=== PATIENT | male | born 1965 | race Caucasian/White ===

== ENCOUNTER 2016-10-12 18:06 | Emergency (ER) | payer MEDICAID, OTHER ==
[~2016-10-12] VITALS: Ht 167.6 cm; Wt 106.0 kg
[2016-10-12 18:11] VITALS: Ht 167.6 cm; Wt 106.0 kg
[2016-10-12] MEDS ORDERED: NA PHOSPHATE/BIPHOS 133 ML ENEMA PR STA (18:39)
[2016-10-12] MEDS ORDERED: DOCUSATE SODIUM 100 MG CAP PO STA (18:39)
[2016-10-12] MEDS ORDERED: POLYETHYLENE GLYCOL 17 GM PACKET PO STA (18:39)
[2016-10-12] MEDS ORDERED: POLY17PO6 PO (20:29)
[2016-10-12] MEDS ORDERED: DOCU-144 PO (20:29)
--- NOTE | 2016-10-12 21:24 | ERD ---
ER Documentation Chief Complaint Date/Time DATE: 10/12/16 TIME: 21:21 Chief Complaint constipation x 2 days , denies abd pain HPI This is a 50-year-old male presenting to the emergency department complaining of stool that is stuck in his rectum for the past 2 days. Patient states the pain is severe. Patient denies any fevers, abdominal pain, diarrhea, blood in stools. Patient states that he is tried Ex-Lax without any relief. He states his last meal was in the afternoon. ROS All systems reviewed and are negative except as per history of present illness. Medications Home Meds Active Scripts Docusate Sodium* (Colace*) 100 Mg Capsule, 100 MG PO BID, #30 CAP Prov:KEVIN GRAMAJO PA-C 10/12/16 Polyethylene Glycol* (Miralax*) 17 Gm Powd.pack, 17 GM PO DAILY Y for CONSTIPATION, #7 Prov:KEVIN GRAMAJO PA-C 10/12/16 Allergies Allergies: Coded Allergies: No Known Allergy (Unverified , 10/12/16) PMhx/Soc Medical and Surgical Hx: pt denies Medical Hx, pt denies Surgical Hx Hx Alcohol Use: No Hx Substance Use: No Hx Tobacco Use: No Smoking Status: Never smoker Physical Exam Vitals Vital Signs Date Time Temp Pulse Resp B/P Pulse Ox O2 Delivery O2 Flow Rate FiO2 10/12/16 18:11 98.1 90 18 134/85 98 Physical Exam GENERAL: well-developed/well-nourished, in no apparent distress, non-toxic appearing HENT: NC/AT, moist mucous membranes EYES: Conjunctiva normal NECK: Supple, no lymphadenopathy PULM: CTA bilaterally, no rales, rhonchi, or wheezing heard CV: Normal S1S2, RRR, good capillary refill GI: Soft, non-distended, nontender to palpation Normal bowel sounds, no masses or organomegaly felt on exam No gross peritonitis, no bruits Negative Rovsing, negative Patiño, negative McBurney's point, Negative CVAT BACK: No masses EXT: No clubbing, cyanosis, or edema NEURO: Alert and Orientated SKIN: Intact, normal turgor PSYCH: Normal mood and mentation Results 24 hrs Current Medications Medications (Trade) Dose Ordered Sig/Nithya Route PRN Reason Start Time Stop Time Status Last Admin Dose Admin Sodium Biphosphate/ Sodium Phosphate (Fleet Enema) 133 ml ONCE STAT [place] 10/12/16 18:39 10/12/16 18:40 DC 10/12/16 19:52 Polyethylene Glycol (Miralax) 17 gm ONCE STAT PO 10/12/16 18:39 10/12/16 18:40 DC 10/12/16 19:52 Docusate Sodium (Colace) 200 mg ONCE STAT PO 10/12/16 18:39 10/12/16 18:40 DC 10/12/16 19:52 Procedures/MDM This is a 50-year-old male presenting to the emergency department complaining of impaction of stool for the past 2 days. Patient did not have any abdominal pain, I doubt that he has small or large bowel obstruction. In the ED patient was given MiraLAX, Fleet enema and Colace. Patient was successful in a bowel movement, I have reassessed him and he significant feels a lot better and would like to go home. I discussed the patient to follow-up with his primary care physician and to return to the ER Prescription for Colace and MiraLAX provided. Discussed to return to the ER for any worsening signs or symptoms. He understands and agrees with this plan Departure Diagnosis: Primary Impression: Constipation Condition: Stable Patient Instructions: Treating Constipation, Constipation (Adult) Referrals: NO PRIMARY,CARE PHYSICIAN (PCP) Additional Instructions: FOLLOW UP WITH YOUR PRIMARY CARE PHYSICIAN TOMORROW.Return to this facility if you are not improving as expected. Take all medicines as directed. Return to this facility if you are not improving as expected. KEVIN GRAMAJO PA-C Oct 12, 2016 21:24
== END 2016-10-12 20:52 | disposition home or self-care (01) ==
LOC: FTE 18:06
DX: K59.00 Constipation, unspecified (principal)
CPT/HCPCS: Z7610 ×3; 99283

== ENCOUNTER 2016-11-30 09:36 | Emergency (ER) | payer MEDICAID ==
[~2016-11-30] VITALS: Ht 165.1 cm; Wt 104.0 kg
[~2016-11-30 09:36] MED LIST: DOCU-144 PO; POLY17PO6 PO
[2016-11-30 09:40] VITALS: Ht 165.1 cm; Wt 104.0 kg
--- NOTE | 2016-11-30 13:00 | ERD ---
DATE OF SERVICE: 11/30/2016 CHIEF COMPLAINT: Rash. HISTORY OF PRESENT ILLNESS: Mr. Haro is a 50-year-old male who presents with an itchy rash on his chest and upper back for the last day. He believes he may have been bitten by spiders, as it may have began after walking through a spider web and he noticed some small insects on him. He denies any shortness of breath, fevers. The rash is itchy without pain. PAST MEDICAL HISTORY: Denies. PAST SURGICAL HISTORY: Denies. ALLERGIES: NONE KNOWN. MEDICATIONS: None. PHYSICAL EXAMINATION: VITAL SIGNS: Stable, afebrile. GENERAL APPEARANCE: Alert, in no apparent distress. HEENT: Mouth clear. NECK: Nontender, no masses. LUNGS: Clear to auscultation bilaterally, no wheeze or rales. CARDIOVASCULAR: Regular rate and rhythm. No murmurs, gallops or rubs. ABDOMEN: Soft and nontender. EXTREMITIES: Normal to inspection and palpation. No edema. SKIN: There are scattered, excoriated wheal-type lesions with central papules. They are diffuse and cross the midline across the chest. There are approximately 6 on his upper back as well. There is no warmth, induration or streaking. MEDICAL DECISION MAKING/EMERGENCY DEPARTMENT COURSE: This 50- year-old male presents with an itchy rash on his chest and upper back, possibly related to insect bites. There is no evidence of anaphylaxis, cellulitis, peritoneal rashes, purpura. ASSESSMENT: Dermatitis, likely insect bites with local reaction. PLAN: The patient will be discharged home with a prescription for triamcinolone, a short course of prednisone and Zyrtec, and further observation at home. He was advised to follow up with primary doctor this week or return to the ER for new or worsening symptoms. Dictated By: Natanael Shahid MD /michael/[email or web address] /Document#: [id number]
== END 2016-11-30 12:10 | disposition home or self-care (01) ==
LOC: FTE 09:36
DX: L30.9 Dermatitis, unspecified (principal)
CPT/HCPCS: 99282

== ENCOUNTER 2017-01-29 14:49 | Emergency (ER) | payer SELFPAY ==
[~2017-01-29] VITALS: Ht 170.2 cm; Wt 106.5 kg
[2017-01-29 14:53] VITALS: Ht 170.2 cm; Wt 106.5 kg
[2017-01-29] MEDS ORDERED: ACETAMINOPHEN 325 MG TAB PO STA (15:59)
[2017-01-29] MEDS ORDERED: ONDANSETRON 4 MG INJ IV STA (15:59)
[2017-01-29] MEDS ORDERED: SODIUM CHLORIDE 0.9% 1L BAG IV* STA (15:59)
[2017-01-29] MEDS ORDERED: HYDROmorphONE 1 MG/ML SYG IV STA (15:59)
[2017-01-29] MEDS ORDERED: CEFTRIAXONE 1 GM/50 ML (PMX) 50 ML IVPB ONE (16:00)
[2017-01-29] MEDS ORDERED: AZTREONAM 1 GM/NS (PMX) 50 ML IVPB ONE (16:30)
--- NOTE | 2017-01-29 16:46 | RADRPT ---
PROCEDURE: CT abdomen and pelvis without contrast. CLINICAL INDICATION: Sepsis TECHNIQUE: CT scan of the abdomen and pelvis without contrast was performed and is reconstructed a t 2.5 mm contiguous axial intervals from the dome of the diaphragm to the inferior pubic rami.. The patient was scanned without intravenous contrast. Sagittal and coronal reformatted images were obt ained from the axial source images. The calculated radiation dose measures 1363 mGy centimeters. The CTDI measures 21 mGy. Individualized dose optimization technique was used for the performance of this exam. This included 1. Automated exposure control. 2. Adjustment of the mA and / or kV according to the patient's size. 3. Use of iterative reconstructed technique. COMPARISON: None FINDINGS: The lung bases are clear of any infiltrate or nodule. There is no effusion. The liver is of normal size, contour and attenuation with no mass or ductal dilatation. Gallbladder has been removed. No splenic, adrenal or pancreatic abnormalities present. Kidneys are of normal size and contour. No hydronephrosis, calculus or masses seen. Ureters are o f normal course and caliber with no stone. No bladder mass or stone is present. Prostate and semina l vesicles are normal. There is no aneurysm. No adenopathy is present. No abscess is seen. No bowel mass or obstruction is present. The appendix is normal. No phlegmon, ascites or pneumop eritoneum is visualized. The osseous structures are intact. IMPRESSION: No evidence of urolithiasis, obstructive uropathy, diverticulitis or appendicitis. No abscess. Post cholecystectomy. .Mk Naik MD, Date Time Electronically viewed and signed by .Mk Naik MD, MD on 01/29/2017 16:45 .A/
--- NOTE | 2017-01-29 16:58 | RADRPT ---
PROCEDURE: XR Chest. CLINICAL INDICATION: Sepsis. Shortness of breath. TECHNIQUE: Single frontal view. COMPARISON: None. FINDINGS: The lungs are clear. The heart size is normal. There is no pleural effusion. There is no pneumothorax. IMPRESSION: 1. Normal chest radiograph. RPTAT: QQ .Natanael Montes MD, MD Date Time Electronically viewed and signed by .Natanael Montes MD, on 01/29/2017 16:58 .R/
--- NOTE | 2017-01-29 17:17 | RADRPT ---
PROCEDURE: US Scrotum. CLINICAL INDICATION: Right scrotal pain. TECHNIQUE: Multiple sonographic images of the scrotal region were obtained utilizing a linear arra y transducer with grayscale and color-flow and pulsed Doppler imaging. The images were reviewed on a high-resolution PACS workstation. COMPARISON: No prior studies are available for comparison. FINDINGS: The right testis measures 4.7 x 2.3 x 3.4 cm. The left testis measures 4.7 x 2.6 x 3.1 cm. There is no intratesticular mass. 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 The right epididymis is enlarged and hyperemic consistent with epididymitis. The left epididymis is normal. There is normal flow to both testes demonstrated with color Doppler and pulsed Doppler sonography. There are small bilateral hydroceles. There is no varicocele. The scrotal wall is unremarkable. IMPRESSION: 1. Mild bilateral testicular microlithiasis. Follow-up ultrasound in 60 12 months is advised. 2. Right epididymitis. 3. Small bilateral hydroceles. 4. Otherwise normal scrotal ultrasound. RPTAT: QQ .Natanael Montes MD, Date Time Electronically viewed and signed by .Natanael Montes MD, MD on 01/29/2017 17:17 .R/
[2017-01-29 17:30] LABS: ABNORMAL IP MESSAGE 1; BASOPHILS % 0.1 % (0.0-2.0); EOSINOPHILS # 0.1 10^3/ul (0.0-0.5); EOSINOPHILS % 0.5 % (0.0-7.0); HEMATOCRIT 37.2 % (42.0-52.0); HEMOGLOBIN 12.9 g/dl (14.0-18.0); LYMPHOCYTES # 1.4 10^3/ul (0.8-2.9); LYMPHOCYTES % 9.1 % (15.0-51.0); MEAN CORPUSCULAR HEMOGLOBIN 32.3 pg (29.0-33.0); MEAN CORPUSCULAR HGB CONC 34.7 g/dl (32.0-37.0); MEAN PLATELET VOLUME 10.6 fl (7.4-10.4); MONOCYTE # 1.6 10^3/ul (0.3-0.9); MONOCYTES % 10.6 % (0.0-11.0); NEUTROPHILS % 79.3 % (39.0-77.0); PLATELET COUNT 199 10^3/UL (140-415); POSITIVE DIFF @See below; RED CELL DISTRIBUTION WIDTH 12.1 % (11.5-14.5); WHITE BLOOD COUNT 15.2 10^3/ul (4.8-10.8)
[2017-01-29 17:48] LABS: PROTIME 13.2 Sec (12.2-14.2)
[2017-01-29 17:49] LABS: PARTIAL THROMBOPLASTIN TIME 30.5 Sec (25.0-35.0)
[2017-01-29 17:51] LABS: ALANINE AMINOTRANSFERASE 26 IU/L (13-69); ALBUMIN 4.4 g/dl (3.3-4.9); ALBUMIN/GLOBULIN RATIO 1.57; ALKALINE PHOSPHATASE 95 IU/L (42-121); ANION GAP 15 (8-16); ASPARTATE AMINO TRANSFERASE 18 IU/L (15-46); BILIRUBIN,INDIRECT 0.3 mg/dl (0-1.1); BILIRUBIN,TOTAL 0.3 mg/dl (0.2-1.3); BLOOD UREA NITROGEN 15 mg/dl (7-20); CALCIUM 8.7 mg/dl (8.4-10.2); CARBON DIOXIDE 26 mmol/L (21-31); CHLORIDE 106 mmol/L (97-110); GLUCOSE 110 mg/dl (70-220); SODIUM 143 mmol/L (135-144); TOTAL PROTEIN 7.2 g/dl (6.1-8.1)
[2017-01-29 18:12] LABS: TROPONIN-I < 0.012 ng/ml (0.00-0.12)
[2017-01-29 18:49] LABS: ADD UMIC YES; UR ASCORBIC ACID NEGATIVE (NEGATIVE); UR BACTERIA MODERATE /HPF (NONE SEEN); UR BILIRUBIN (Dip) NEGATIVE (NEGATIVE); UR BLOOD (Dip) 2+ mg/dL (NEGATIVE); UR CLARITY CLOUDY (CLEAR); UR COLOR YELLOW (YELLOW); UR GLUCOSE (Dip) NEGATIVE (NEGATIVE); UR KETONES (Dip) NEGATIVE (NEGATIVE); UR LEUKOCYTE ESTERASE (Dip) 3+ Leu/ul (NEGATIVE); UR MUCUS FEW /HPF (NONE SEEN); UR NITRITE (Dip) NEGATIVE (NEGATIVE); UR NONSQUAMOUS EPITHELIAL CELL 2 /HPF (NONE SEEN); UR RBC > 182 /HPF (0-5); UR SPECIFIC GRAVITY (Dip) 1.025 (1.003-1.030); UR TOTAL PROTEIN (Dip) 3+ mg/dl (NEGATIVE); UR UROBILINOGEN (Dip) 2+ mg/dL (NEGATIVE)
[2017-01-29] MEDS ORDERED: CIPR500T4 PO (18:55)
[2017-01-29] MEDS ORDERED: ONDA4TAB14 PO (18:55)
[2017-01-29] MEDS ORDERED: HYDR-902 PO (18:55)
--- NOTE | 2017-01-29 18:57 | ERD ---
ER Documentation Chief Complaint Chief Complaint flank pain radiating to pelvic pain with bright red blood in urine since am HPI Patient is a 51-year-old male with no medical problems who presents with shivering. He said that morning he felt cold and shivers. He had constipation. He had headache and fever on Monday. He tried aspirin and Motrin. He has had bilateral testicular pain which comes and goes. He started peeing red urine today and the pain got worse. He took 2 ibuprofen at 10 AM. He does not currently have a primary doctor. Upon review of old medical records this is the patient's third visit to the ER since 2017. ROS All systems reviewed and are negative except as per history of present illness. Medications Home Meds Active Scripts Ondansetron (Ondansetron Odt) 4 Mg Tab.rapdis, 4 MG PO Q6H Y for NAUSEA AND/OR VOMITING, #10 TAB Prov:DONAVAN BRUNO MD 01/29/17 Hydrocodone/Acetaminophen ([place] 10-325 Tablet) 1 Each Tablet, 1 TAB PO Q6H Y for PAIN, #7 TAB Prov:DONAVAN BRUNO MD 01/29/17 Ciprofloxacin Hcl* (Ciprofloxacin Hcl*) 500 Mg Tablet, 500 MG PO BID for 7 Days , TAB Prov:DONAVAN BRUNO MD 01/29/17 Discontinued Scripts Docusate Sodium* (Colace*) 100 Mg Capsule, 100 MG PO BID, #30 CAP Prov:KEVIN GRAMAJO PA-C 10/12/16 Polyethylene Glycol* (Miralax*) 17 Gm Powd.pack, 17 GM PO DAILY Y for CONSTIPATION, #7 Prov:KEVIN GRAMAJO PA-C 10/12/16 Allergies Allergies: Coded Allergies: No Known Allergy (Unverified , 01/29/17) PMhx/Soc Medical and Surgical Hx: pt denies Medical Hx History of Surgery: Yes (fx left leg) Hx Psychiatric Problems: Yes Hx Alcohol Use: No Hx Substance Use: No Hx Tobacco Use: No Smoking Status: Never smoker FmHx Family History: diabetes Physical Exam Vitals Vital Signs Date Time Temp Pulse Resp B/P Pulse Ox O2 Delivery O2 Flow Rate FiO2 01/29/17 16:44 89 11 140/79 97 01/29/17 14:53 101.0 87 20 173/82 100 Physical Exam Const: Moderate distress Head: Atraumatic Eyes: Normal Conjunctiva ENT: Normal External Ears, Nose and Mouth. Neck: Full range of motion..~ No meningismus. Resp: Clear to auscultation bilaterally Cardio: Regular rate and rhythm, no murmurs Abd: Soft, non tender, non distended. Normal bowel sounds Skin: No petechiae or rashes Back: No midline or flank tenderness Ext: No cyanosis, or edema Neur: Awake and alert Psych: Normal Mood and Affect Result Diagram: 01/29/17 1715 01/29/17 171 Results 24 hrs Laboratory Tests Test 01/29/17 17:15 01/29/17 18:07 01/29/17 18:21 White Blood Count 15.210^3/ul Red Blood Count 4.0010^6/ul Hemoglobin 12.9g/dl Hematocrit 37.2% Mean Corpuscular Volume 93.0fl Mean Corpuscular Hemoglobin 32.3pg Mean Corpuscular Hemoglobin Concent 34.7g/dl Red Cell Distribution Width 12.1% Platelet Count 87211^3/UL Mean Platelet Volume 10.6fl Neutrophils % 79.3% Lymphocytes % 9.1% Monocytes % 10.6% Eosinophils % 0.5% Basophils % 0.1% Nucleated Red Blood Cells % 0.0/100WBC Neutrophils # 12.010^3/ul Lymphocytes # 1.410^3/ul Monocytes # 1.610^3/ul Eosinophils # 0.110^3/ul Basophils # 0.010^3/ul Nucleated Red Blood Cells # 0.010^3/ul Prothrombin Time 13.2Sec Prothrombin Time Ratio 1.0 INR International Normalized Ratio 1.00 Activated Partial Thromboplast Time 30.5Sec Sodium Level 143mmol/L Potassium Level 4.0mmol/L Chloride Level 106mmol/L Carbon Dioxide Level 26mmol/L Anion Gap 15 Blood Urea Nitrogen 15mg/dl Creatinine 0.70mg/dl Glucose Level 110mg/dl Lactic Acid Level 0.9mmol/L 0.7mmol/L Calcium Level 8.7mg/dl Total Bilirubin 0.3mg/dl Direct Bilirubin 0.00mg/dl Indirect Bilirubin 0.3mg/dl Aspartate Amino Transf (AST/SGOT) 18IU/L Alanine Aminotransferase (ALT/SGPT) 26IU/L Alkaline Phosphatase 95IU/L Troponin I < 0.012ng/ml Total Protein 7.2g/dl Albumin 4.4g/dl Globulin 2.80g/dl Albumin/Globulin Ratio 1.57 Urine Color YELLOW Urine Clarity CLOUDY Urine pH 8.0 Urine Specific Venus 1.025 Urine Ketones NEGATIVEmg/dL Urine Nitrite NEGATIVEmg/dL Urine Bilirubin NEGATIVEmg/dL Urine Urobilinogen 2+mg/dL Urine Leukocyte Esterase 3+Linh/ul Urine Microscopic RBC > 182/HPF Urine Microscopic WBC > 182/HPF Urine Bacteria MODERATE/HPF Urine Mucus FEW/HPF Urine Hemoglobin 2+mg/dL Urine Glucose NEGATIVEmg/dL Urine Total Protein 3+mg/dl Current Medications Medications (Trade) Dose Ordered Sig/Nithya Route PRN Reason Start Time Stop Time Status Last Admin Dose Admin Sodium Chloride (NS) 3,300 ml BOLUS OVER 2 HOURS STAT IV* 01/29/17 15:59 01/29/17 16:02 DC 01/29/17 17:26 Acetaminophen 650 mg 650 mg ONCE STAT PO 01/29/17 15:59 01/29/17 16:02 DC 01/29/17 17:22 Ceftriaxone Sodium (Rocephin) 50 ml @ 100 mls/hr ONCE ONCE IVPB 01/29/17 16:00 01/29/17 16:06 DC Hydromorphone HCl (Dilaudid) 1 mg ONCE STAT IV 01/29/17 15:59 01/29/17 16:02 DC 01/29/17 17:23 Ondansetron HCl 4 mg 4 mg ONCE STAT IV 01/29/17 15:59 01/29/17 16:02 DC 01/29/17 17:22 Aztreonam (Azactam 1gm/NS (Pmx)) 50 ml @ 100 mls/hr ONCE ONCE IVPB 01/29/17 16:30 01/29/17 16:59 DC 01/29/17 18:03 Procedures/MDM EKG read by me: Rate/Rhythm: Regular rate and rhythm at a rate of 89 Intervals: Normal Impression: No evidence of ischemia or arrhythmia CT abdomen pelvis shows no acute surgical process per radiology. Ultrasound of the scrotum shows epididymitis on the right side per radiology. Chest x-ray shows no pneumonia or pneumothorax per radiology. Is a 51-year-old male who presents with fever and flank pain. He was found to have acute pyelonephritis. After treatment with pain medicine and Tylenol he is feeling much better and looks well. He was given ceftriaxone IV. I do not believe he has sepsis or requires admission to the hospital at this time. I believe outpatient management is appropriate and the patient will be treated with Cipro as well as [place] and Zofran. The patient has cultures pending. The patient will need to follow-up with a primary doctor within 24-48 hours and could return if symptoms worsen. The patient was given copies of his laboratory studies and imaging test reports prior to discharge. Critical Care: Time: 35 minutes excluding all billable procedures. Treatments/Evaluations: Close monitoring and treatment of unstable vital signs, cardiorespiratory, and neurologic status, while maintaining tight balance of fluid, respiratory, and cardiac interventions. Departure Diagnosis: Primary Impression: Acute epididymitis Additional Impressions: Flank pain Pyelonephritis Condition: Fair Patient Instructions: Epididymitis, Pyelonephritis, Male (Adult) Referrals: [facility] YOU HAVE RECEIVED A MEDICAL SCREENING EXAM AND THE RESULTS INDICATE THAT YOU DO NOT HAVE A CONDITION THAT REQUIRES URGENT TREATMENT IN THE EMERGENCY DEPARTMENT. FURTHER EVALUATION AND TREATMENT OF YOUR CONDITION CAN WAIT UNTIL YOU ARE SEEN IN YOUR DOCTORS OFFICE WITHIN THE NEXT 1-2 DAYS. IT IS YOUR RESPONSIBILITY TO MAKE AN APPOINTMENT FOR FOLOW-UP CARE. IF YOU HAVE A PRIMARY DOCTOR --you should call your primary doctor and schedule an appointment IF YOU DO NOT HAVE A PRIMARY DOCTOR YOU CAN CALL OUR PHYSICIAN REFERRAL HOTLINE AT IF YOU CAN NOT AFFORD TO SEE A PHYSICIAN YOU CAN CHOSE FROM THE FOLLOWING [facility] [id number] [facility]. [facility] [address] [facility] [facility] [address] [facility]. [facility] [address] [facility]. [facility] [address] [facility]. [facility]. [address] Additional Instructions: Call your primary care doctor TOMORROW for an appointment during the next 1-2 days.See the doctor sooner or return here if your condition worsens before your appointment time. DONAVAN BRUNO MD Jan 29, 2017 18:57
[2017-01-29 19:30] VITALS: BP 159/101; PULSE 87; RESP 18
== END 2017-01-29 19:31 | disposition home or self-care (01) ==
LOC: E/R 14:49
DX: N45.1 Epididymitis (principal); N12 Tubulo-interstitial nephritis, not specified as acute or chronic; R07.9 Chest pain, unspecified
CPT/HCPCS: 36415; 71010; 74176; 76870; 80053; 81001; 83605; 84484; 85025; 85610; 85730; 87040; 87086; 93005; 96374; 96375; 99291; J1170; J2405; J7030

== ENCOUNTER 2017-01-30 15:51 | Emergency (ER) | payer SELFPAY ==
[~2017-01-30] VITALS: Ht 172.7 cm; Wt 108.0 kg
[~2017-01-30 15:51] MED LIST changes: +CIPR500T4 PO; +HYDR-902 PO; +ONDA4TAB14 PO
[2017-01-30 16:07] VITALS: Ht 172.7 cm; Wt 108.0 kg
== END 2017-01-30 17:01 | disposition left against medical advice (07) ==
LOC: FTE 15:51 → E/R 17:01
DX: Z53.21 Procedure and treatment not carried out due to patient leaving prior to being seen by health care provider (principal)